=== PATIENT | female | born 1960 | race Hispanic/Latino ===

== ENCOUNTER 2023-12-15 16:13 | Inpatient (IN) | payer OTHER ==
[2023-12-15] VITALS (14 sets, daily range): BP systolic 89–104; BP diastolic 39–51; PULSE 64–70; RESP 10–19; O2SAT 99
[~2023-12-15] VITALS: Ht 144.8 cm; Wt 84.1 kg
[~2023-12-15 16:13] MED LIST: ASPI-1443 PO; ATOR40TA69 PO; CYAN100099 PO; FOLI0.8C PO; FURO20TA6 PO; INSLAN SQ; LISI10TA24 PO; METF-444 PO; NITR0.4T50 SL; POTA20PA32 PO
[2023-12-15 16:31] LABS: BASOPHILS # (AUTO) 0.05 K/uL (0.00-0.20); BASOPHILS % (AUTO) 0.4 % (0.0-5.0); EOSINOPHILS # (AUTO) 0.06 K/uL (0.00-0.70); EOSINOPHILS % (AUTO) 0.5 % (0.0-8.0); HEMATOCRIT 40.8 % (36-48); IMMATURE GRANULOCYTE ABSOLUTE 0.04 K/uL (0-1); LYMPHOCYTES # (AUTO) 3.4 K/uL (1.0-4.8); LYMPHOCYTES % (AUTO) 28.1 % (21.0-51.0); MEAN CORPUSCULAR HEMOGLOBIN 30.8 pg (27.0-33.0); MEAN CORPUSCULAR HGB CONC 32.8 g/dL (32.0-36.0); MEAN CORPUSCULAR VOLUME 93.8 fL (79-99); MONOCYTES % (AUTO) 7.8 % (3.0-13.0); NEUTROPHILS # (AUTO) 7.6 K/uL (1.8-7.7); NEUTROPHILS % (AUTO) 62.9 % (40.0-77.0); PLATELET COUNT (AUTO) 144 K/uL (130-400); RED BLOOD CELL COUNT(AUTO) 4.35 MIL/uL (4.00-5.50); RED CELL DISTRIBUTION WIDTH 13.2 % (11.0-15.5); WHITE BLOOD COUNT (AUTO) 12.1 K/uL (4.8-10.8)
[2023-12-15 16:43] LABS: CREATININE 0.9 mg/dL (0.5-1.0); POTASSIUM 3.8 mmol/L (3.5-5.1)
[2023-12-15 16:49] LABS: INR 1.11 (0.85-1.15); PROTHROMBIN TIME 11.9 SEC (9.6-11.6)
[2023-12-15 16:50] LABS: PARTIAL THROMBOPLASTIN TIME 30.2 SEC (26.3-35.5)
[2023-12-15 16:53] LABS: ALBUMIN 3.7 g/dL (3.5-5.0); BILIRUBIN,TOTAL 1.2 mg/dL (0.2-1.0); MAGNESIUM 1.7 mg/dL (1.80-2.40); TOTAL PROTEIN, SERUM 7.8 g/dL (6.0-8.3)
[2023-12-15] MEDS: ADENOSINE 6MG VIAL IV ONE ×2 (16:54→17:00)
[2023-12-15] MEDS: 0.9%NACL 1000ML 1,000 ML IV ONE ×2 (16:54→17:51)
[2023-12-15 17:13] LABS: B-TYPE NATRIURETIC PEPTIDE 378 pg/mL (0-100)
[2023-12-15] MEDS ORDERED: ASPIRIN 325MG TAB PO ONE (17:30)
[2023-12-15] MEDS: ASPIRIN 81 MG EC TAB PO ONE (17:51)
[2023-12-15] MEDS: MIDODRINE HCL 5 MG TABLET PO ONE (17:51)
[2023-12-15] MEDS: NOREPINEPHRIN 4MG/NS 250ML 250 ML IV ONE (18:14)
[2023-12-15] MEDS ORDERED: NOREPINEPHRIN 4MG/NS 250ML 250 ML IV SCH (18:30)
[2023-12-15 18:38] LABS: APPEARANCE,URINE CLEAR (CLEAR); BILIRUBIN,URINE NEGATIVE (NEGATIVE); COLOR,URINE YELLOW (YELLOW); GLUCOSE, URINE (UA) NEGATIVE (NEGATIVE); KETONES,URINE 10 mg/dL (NEGATIVE); LEUKOCYTE ESTERASE ,URINE 75 Leu/uL (NEGATIVE); NITRATE,URINE NEGATIVE (NEGATIVE); OCCULT BLOOD,URINE SMALL (NEGATIVE); PH,URINE 5.5 (5.0-8.0); PROTEIN,URINE 70 mg/dL (NEGATIVE); UROBILINOGEN,URINE 0.2 mg/dL (0.2-1.0)
[2023-12-15] MEDS ORDERED: DEXTROSE 50%-WATER 50 ML DISP.SYRIN IV PRN (19:00)
[2023-12-15] MEDS ORDERED: ACETAMINOPHEN 325 MG TAB PO PRN ×3 (19:00)
[2023-12-15] MEDS ORDERED: ONDANSETRON 4MG INJ IV PRN (19:00)
[2023-12-15] MEDS ORDERED: HYDRALAZINE 20MG/ML VIAL IV PRN (19:00)
[2023-12-15] MEDS ORDERED: KCL 20 MEQ ERTAB PO PRN (19:00)
[2023-12-15] MEDS ORDERED: LACTULOSE 20 GM/30 ML UDCUP PO PRN (19:00)
[2023-12-15] MEDS ORDERED: FAMOTIDINE 20MG VIAL IV PRN (19:00)
[2023-12-15] MEDS ORDERED: NITROGLYCERIN 0.4 MG SL TAB SL PRN (19:00)
[2023-12-15] MEDS ORDERED: GLUCAGON 1MG KIT 1 MG ML IM PRN (19:00)
[2023-12-15] MEDS ORDERED: GUAIFENESIN-DM 200/20 MG 10 ML PO PRN (19:00)
[2023-12-15] MEDS ORDERED: MAG/ALUM/SIMETH 30 ML UDCUP PO PRN (19:00)
[2023-12-15] MEDS ORDERED: DiphenhydrAMINE HCL 50 MG/ML VIAL IV PRN (19:00)
[2023-12-15] MEDS ORDERED: ZOLPIDEM TARTRATE 5 MG TAB PO PRN (19:00)
[2023-12-15] MEDS ORDERED: KETOROLAC 15MG/ML VIAL (15MG/ML) IV PRN (19:00)
[2023-12-15] MEDS ORDERED: POTASSIUM CHLORIDE 10MEQ/100ML 100 ML IV PRN (19:00)
[2023-12-15 19:15] LABS: ADD UA MICROSCOPIC YES
[2023-12-15 19:18] LABS: BACTERIA,URINE FEW /HPF (None Seen); MUCUS,URINE FEW LPF (None Seen); SQUAMOUS EPITHELIAL CELL,UR RARE /HPF (0-2); WBC,URINE 26-50 /HPF (0-1)
[2023-12-15] MEDS: 0.9%NACL 1000ML 1,000 ML IV SCH (19:42)
[2023-12-15] MEDS: INSULIN HUMULIN R 100 UNIT/ML 3ML SQ SCH (20:25)
[2023-12-15] MEDS: FAMOTIDINE 20MG VIAL IV SCH (20:31)
[2023-12-15] MEDS: HEPARIN 5,000 UNIT VIAL SQ SCH (20:31)
[2023-12-15] MEDS: CEFTRIAXONE 2GM VIAL IVPB SCH (22:47)
[2023-12-16] VITALS (74 sets, daily range): BP systolic 89–127; BP diastolic 35–62; PULSE 56–75; RESP 5–28; O2SAT 98–99
[2023-12-16] MEDS ORDERED: CEFTRIAXONE 2GM VIAL IVPB SCH (03:30)
[2023-12-16 04:26] LABS: BASOPHILS # (AUTO) 0.04 K/uL (0.00-0.20); BASOPHILS % (AUTO) 0.4 % (0.0-5.0); EOSINOPHILS # (AUTO) 0.23 K/uL (0.00-0.70); EOSINOPHILS % (AUTO) 2.3 % (0.0-8.0); HEMATOCRIT 33.1 % (36-48); HEMOGLOBIN A1C 6.2 % (4.0-6.0); IMMATURE GRANULOCYTE ABSOLUTE 0.04 K/uL (0-1); LYMPHOCYTES # (AUTO) 3.6 K/uL (1.0-4.8); LYMPHOCYTES % (AUTO) 35.7 % (21.0-51.0); MEAN CORPUSCULAR HEMOGLOBIN 31.4 pg (27.0-33.0); MEAN CORPUSCULAR HGB CONC 33.5 g/dL (32.0-36.0); MEAN CORPUSCULAR VOLUME 93.8 fL (79-99); MONOCYTES # (AUTO) 0.8 K/uL (0.1-1.0); MONOCYTES % (AUTO) 7.5 % (3.0-13.0); NEUTROPHILS # (AUTO) 5.5 K/uL (1.8-7.7); NEUTROPHILS % (AUTO) 53.7 % (40.0-77.0); PLATELET COUNT (AUTO) 93 K/uL (130-400); RED BLOOD CELL COUNT(AUTO) 3.53 MIL/uL (4.00-5.50); RED CELL DISTRIBUTION WIDTH 13.7 % (11.0-15.5); WHITE BLOOD COUNT (AUTO) 10.2 K/uL (4.8-10.8)
[2023-12-16 04:42] LABS: ALBUMIN 2.7 g/dL (3.5-5.0); BILIRUBIN,DIRECT 0.3 mg/dL (0.0-0.3); BILIRUBIN,TOTAL 1.2 mg/dL (0.2-1.0); CREATININE 0.6 mg/dL (0.5-1.0); MAGNESIUM 1.7 mg/dL (1.80-2.40); POTASSIUM 3.4 mmol/L (3.5-5.1); TOTAL PROTEIN, SERUM 6.2 g/dL (6.0-8.3)
[2023-12-16] MEDS: MAGNESIUM 2GM PREMIX 50ML 50 ML IV PRN (05:05)
[2023-12-16] MEDS: POTASSIUM CHLORIDE 10% ELIXIR 20 MEQ/15 ML UDCUP PO PRN (05:17)
[2023-12-16] MEDS: MIDODRINE HCL 5 MG TABLET PO SCH (05:45)
[2023-12-16] MEDS ORDERED: POTASSIUM CHLORIDE 10MEQ SR TAB PO PRN (06:30)
[2023-12-16] MEDS: INSULIN GLARGINE 100 UNITS/ML 10 ML VIAL SQ SCH (06:41)
[2023-12-16] MEDS ORDERED: FUROSEMIDE 20 MG TABLET PO SCH (09:00)
[2023-12-16] MEDS: FOLIC ACID 1 MG TABLET PO SCH (10:04)
[2023-12-16] MEDS: KCL 20 MEQ ERTAB PO SCH (10:04)
[2023-12-16] MEDS: ASPIRIN 81 MG EC TAB PO SCH (10:07)
[2023-12-16] MEDS: CYANOCOBALAMIN (VITAMIN B-12) 1,000 MCG TABLET PO SCH (10:07)
[2023-12-16] MEDS: ATORVASTATIN 40 MG TABLET PO SCH (21:13)
[2023-12-17] VITALS (11 sets, daily range): BP systolic 99–132; BP diastolic 42–59; PULSE 57–88; RESP 18–20; O2SAT 96–100
[2023-12-17] MEDS ORDERED: IOHEXOL 350 MG/ML 100ML INFUS..BTL IV ONE (08:39)
[2023-12-17] MEDS ORDERED: METOPROLOL TARTRATE 1 MG/ML 5ML VIAL IV ONE (08:57)
[2023-12-17] MEDS: ENOXAPARIN SODIUM 40 MG/0.4 ML SYRINGE SQ SCH (10:07)
[2023-12-17] MEDS: LEVOFLOXACIN 750 MG TABLET PO SCH (10:11)
[2023-12-17] MEDS: VERAPAMIL HCL 80 MG TABLET PO SCH (15:47)
[2023-12-18 02:42] VITALS: PULSE 66; RESP 18; O2SAT 98
[2023-12-18 03:53] VITALS: BP 93/50; PULSE 53; RESP 20
[2023-12-18 04:33] LABS: HEMATOCRIT 31.7 % (36-48); MEAN CORPUSCULAR HEMOGLOBIN 31.8 pg (27.0-33.0); MEAN CORPUSCULAR HGB CONC 33.4 g/dL (32.0-36.0); MEAN CORPUSCULAR VOLUME 95.2 fL (79-99); PLATELET COUNT (AUTO) 69 K/uL (130-400); RED BLOOD CELL COUNT(AUTO) 3.33 MIL/uL (4.00-5.50); RED CELL DISTRIBUTION WIDTH 13.2 % (11.0-15.5); WHITE BLOOD COUNT (AUTO) 4.5 K/uL (4.8-10.8)
[2023-12-18 05:01] LABS: ALBUMIN 2.7 g/dL (3.5-5.0); BILIRUBIN,TOTAL 0.6 mg/dL (0.2-1.0); CREATININE 0.6 mg/dL (0.5-1.0); MAGNESIUM 1.8 mg/dL (1.80-2.40); POTASSIUM 3.7 mmol/L (3.5-5.1); TOTAL PROTEIN, SERUM 6.2 g/dL (6.0-8.3)
[2023-12-18 05:32] LABS: PLATELET MORPHOLOGY COMMENT DECREASED
[2023-12-18 05:49] VITALS: PULSE 60
[2023-12-18 08:09] VITALS: BP 94/45; PULSE 54; RESP 17
[2023-12-18 08:16] VITALS: O2SAT 98
[2023-12-18] MEDS ORDERED: VERAPAMIL HCL 80 MG TABLET PO SCH (09:30)
[2023-12-18 12:18] VITALS: BP 93/55; PULSE 63; RESP 18
[2023-12-18] MEDS ORDERED: MIDO5TAB4 PO (13:39)
[2023-12-18] MEDS ORDERED: CEFD300C3 PO (13:40)
== END 2023-12-18 15:00 | disposition home or self-care (01) | DRG 871 ==
LOC: EDH 16:13 → EDHIP 16:14 → UNDOADMIN 18:36 → EDHIP 18:36 → 2BH 21:20 → 2DH 12-16 18:30
PROVIDERS: ADMIT Hospitalist; ATTEND Hospitalist
PROC: B2111ZZ Fluoroscopy of Multiple Coronary Arteries using Low Osmolar Contrast (ICD-10-PCS; principal; 2023-12-18)
DX: A41.9 Sepsis, unspecified organism (principal); E11.10 Type 2 diabetes mellitus with ketoacidosis without coma; I21.A1 Myocardial infarction type 2; R65.21 Severe sepsis with septic shock; I47.10 Supraventricular tachycardia, unspecified; I13.0 Hypertensive heart and chronic kidney disease with heart failure and stage 1 through stage 4 chronic kidney disease, or unspecified chronic kidney disease; I31.39 Other pericardial effusion (noninflammatory); I50.32 Chronic diastolic (congestive) heart failure; N30.00 Acute cystitis without hematuria; E83.42 Hypomagnesemia; N18.9 Chronic kidney disease, unspecified; I07.1 Rheumatic tricuspid insufficiency; D69.6 Thrombocytopenia, unspecified; B96.20 Unspecified Escherichia coli [E. coli] as the cause of diseases classified elsewhere; E11.22 Type 2 diabetes mellitus with diabetic chronic kidney disease; I25.10 Atherosclerotic heart disease of native coronary artery without angina pectoris; Z91.199 Patient's noncompliance with other medical treatment and regimen due to unspecified reason; Z79.4 Long term (current) use of insulin; Z79.82 Long term (current) use of aspirin; Z79.84 Long term (current) use of oral hypoglycemic drugs; Z79.899 Other long term (current) drug therapy; Z86.16 Personal history of COVID-19
CPT/HCPCS: 36415; 71045; 75574; 76376; 80048; 80053; 80076; 81001; 82140; 82550; 82948; 83036; 83605; 83735; 83880; 84145; 84484; 85025; 85027; 85610; 85730; 87086; 87186; 93005; 93306; 93356; 94660; 99291; G0378; J0153; J0696; J1644; J1650; J3475; J3490; J7030; Q9967